=== PATIENT | female | born 1950 | race Caucasian/White ===

== ENCOUNTER 2023-10-27 20:57 | Emergency (ER) | payer MEDICARE, SELFPAY ==
--- NOTE | ~2023-10-27 | XR_ITS ---
EXAM: XR pelvis 1-2V DATE: 10/27/2023 23:30 HISTORY: fall . COMPARISON: None available. FINDINGS: Normal mineralization. No fracture or dislocation. No lytic or blastic lesion. Lumbar dege nerative disc disease. Bilateral hip osteoarthritis. No erosion or periosteal change. Soft tissues wi thin normal limits. IMPRESSION: No acute osseous finding in the pelvis. Reviewed, dictated and finalized at location K.
--- NOTE | ~2023-10-27 | XR_ITS ---
EXAMINATION: XR chest 1V Exam Date/Time: 10/27/2023 23:15 CDT HISTORY: fall Comparison: None. RESULT: Lines, tubes, and devices: None. Lungs and pleura: Leftward rotation in one frontal view. Low volumes in the second frontal view. Francine gs are clear. Cardiomediastinal silhouette: Unremarkable. Other: No acute osseous or upper abdominal finding. IMPRESSION: No acute cardiopulmonary process. Reviewed, dictated and finalized at location K.
--- NOTE | ~2023-10-27 | CT_ITS ---
EXAMINATION: CT pelvis wo con DATE: 10/28/2023 00:44 INDICATION: Status post fall. Hematoma. TECHNIQUE: Computed tomography (CT) of the pelvis was performed without intravenous contrast. The dos e-length product was 622.44 mGy-cm. Automated exposure control and iterative reconstruction technique were employed. COMPARISON: None FINDINGS: There is fluid and fatty infiltration in the right gluteal region, consistent with hematoma measuring up to 13 cm. No intra-abdominal abnormality is seen. Mild osteoarthritis of the hips. Marlyn re lower lumbar spondylosis partially visualized. Left lateral listhesis at L4-5. No acute fracture o r traumatic malalignment. IMPRESSION: 1. Soft tissue and fluid right gluteal soft tissues, consistent with hematoma. Reviewed, dictated and finalized at location B.
--- NOTE | ~2023-10-27 | CT_ITS ---
EXAMINATION: CT thoracic lumbar wo con DATE: 10/27/2023 23:42 INDICATION: back injury, fall . TECHNIQUE: Computed tomography (CT) of the thoracic and lumbar spine was performed without intravenou s contrast. The dose-length product was 2042.26 mGy-cm. COMPARISON: None FINDINGS: THORACIC SPINE: Exaggerated kyphosis. Moderate scoliosis. Vertebral body alignment intact. Vertebral body heights pre served. Multilevel moderate disc space narrowing and mild marginal osteophytosis. Multilevel vacuum p henomenon in the mid and lower thoracic spine disc spaces. Multilevel mild facet arthropathy. No trau matic malalignment or fracture. Visualized lung parenchyma is clear. No severe central canal or neura l foraminal narrowing Bone island in a posterior right rib. Large hiatal hernia. Cholecystectomy. LUMBAR SPINE: Moderate scoliosis. 5 nonrib-bearing lumbar-type vertebral bodies. Pedicles intact. 2 mm retrolisthes is at L2-3. 2 mm anterolisthesis at L4-5. Vertebral body heights preserved. Multilevel severe degener ative disc disease including large bridging osteophytes and vacuum phenomenon at multiple lumbar leve ls. Multilevel severe lower lumbar facet arthropathy. Severe bilateral L5-S1 neural foraminal narrowi ng secondary to degenerative changes. Severe central canal stenosis at L4-5 secondary to degenerative changes. 1.5 x 9.8 by at least 8.8 cm subcutaneous hematoma/contusion with surrounding stranding ove rlying the right posterior pelvis. IMPRESSION: No acute fracture or traumatic malalignment detected in the thoracic or lumbar spine. 9.8 cm subcutaneous hematoma/contusion overlying the right posterior pelvis, incompletely included in the [id number] Multilevel moderate and severe degrees of degenerative disc disease and mild facet arthropathy in the thoracic spine. Grade 1 listheses at L2-3 and L4-5 likely secondary to degenerative changes. Multilevel severe lumbar degenerative disc disease and facet arthropathy causing severe central canal stenosis at L4-5 and severe bilateral neural foraminal narrowing at L5-S1. Reviewed, dictated and finalized at location K. IMPRESSION: No acute fracture or traumatic malalignment detected in the thoracic or lumbar spine. 9.8 cm subcutaneous hematoma/contusion overlying the right posterior pelvis, in completely included in the [id number] Multilevel moderate and severe degrees of degenerative disc disease and mild fa cet arthropathy in the thoracic spine. Grade 1 listheses at L2-3 and L4-5 likely secondary to degenerative changes. Multilevel severe lumbar degenerative disc disease and facet arthropathy causin g severe central canal stenosis at L4-5 and severe bilateral neural foraminal n arrowing at L5-S1.
[2023-10-27 21:30] VITALS: BP 138/70; PULSE 54; RESP 14; TEMP 36.9; O2SAT 99
[2023-10-27 21:36] VITALS: BP 138/70; PULSE 55; RESP 12; O2SAT 99
[2023-10-27 22:00] VITALS: PULSE 54; RESP 13; O2SAT 100
[2023-10-27 22:45] VITALS: PULSE 61; RESP 14; O2SAT 100
[2023-10-27 23:00] VITALS: PULSE 60; RESP 15; O2SAT 100
--- NOTE | 2023-10-27 23:30 | PC.NURSE ---
Report from RUDY Martinez. Pt resting quietly per cart with eyes closed. Resp even and nonlabored.
[2023-10-27 23:42] VITALS: BP 140/65; PULSE 64; RESP 12
--- NOTE | 2023-10-27 23:46 | PC.NURSE ---
care and report given to RUDY Perez. all questions answered.
[2023-10-28] VITALS (9 sets, daily range): BP systolic 98–137; BP diastolic 58–83; PULSE 69–75; RESP 11–16; O2SAT 95–100
--- NOTE | 2023-10-28 00:17 | ED.FALL ---
HPI - Fall General Chief Complaint: Fall Stated Complaint: FALL Time Seen by Provider: 10/27/23 22:21 Source: patient and EMS Mode of arrival: EMS Limitations: dementia History of Present Illness HPI Narrative: This is a 73-year-old female that presents to the emergency department after a witnessed fall today. Reportedly patient fell in the shower at her facility. She had a contusion on her back which prompted them to send her in for further evaluation. Patient is nonverbal. Appears in no acute distress. Related Data Allergies Allergy/AdvReac Type Severity Reaction Status Date / Time Cephalosporins Allergy Unknown Verified 10/27/23 21:37 lisinopril Allergy Unknown Verified 10/27/23 21:37 Penicillins Allergy Unknown Verified 10/27/23 21:37 Sulfa (Sulfonamide Allergy Unknown Verified 10/27/23 21:37 Antibiotics) Review of Systems Review of Systems: ROS unobtainable: Yes unobtainable due to medical condition PMFSH Past Medical History Medical History (Updated 10/28/23 @ 00:48 by Mercy Loera PA-C) History of dementia History of hypertension Social History Social History (Updated 10/28/23 @ 00:18 by Mercy Loera PA-C) Substance use: never Exam Narrative: GENERAL: Elderly, well-nourished, and in no acute distress. HEAD: Normocephalic, atraumatic. EYES: PERRLA and EOMI. ENT: Nares clear, no rhinorrhea or epistaxis. Mucous membranes moist. Oropharynx without tonsillar hypertrophy exudate or other lesions. Bilateral TMs pearly moreno non-bulging NECK: Supple. No adenopathy or masses. CHEST: Clear to auscultation. No respiratory distress. No wheezes rales or rhonchi HEART: Regular rate and rhythm. No murmur heard. Normal peripheral pulses. BACK: No midline spinal tenderness. Contusion to the right of the lumbar spine EXTREMITIES: Normal range of motion. No edema. SKIN: Warm, dry, no rash. NEURO: No focal deficits. Alert. Neurologic exam is severely limited due to her dementia PSYCH: Normal mood Course Vital Signs Vital signs: Vital Signs Temperature 98.4 F 10/27/23 21:30 Pulse Rate 54 L 10/27/23 21:30 Respiratory Rate 14 10/27/23 21:30 Blood Pressure 138/70 10/27/23 21:30 Pulse Oximetry 99 10/27/23 21:30 Temperature 98.4 F 10/27/23 21:30 Pulse Rate 74 10/28/23 01:40 Respiratory Rate 16 10/28/23 01:40 Blood Pressure 118/69 10/28/23 01:40 Pulse Oximetry 97 10/28/23 01:40 MDM - Fall MDM Narrative Medical decision making narrative: Patient presents the emergency department after witnessed fall at facility with a contusion to her back. Her vitals are stable. She appears to be neurologically intact and at baseline. CT thoracic and lumbar spine without acute osseous findings. Does show a right posterior pelvis hematoma. CT pelvis once again shows hematoma, no acute fractures. Chest x-ray without acute cardiopulmonary abnormality. Patient incidentally also has candidal intertrigo. Will be started on clotrimazole. Given warnings to return to the ER Differential Diagnosis Differential diagnosis: Likely compression fracture and other (contusion, hematoma) Imaging Data Radiologist's impression: ITS Impressions Chest X-Ray 10/27/23 23:31 IMPRESSION: No acute cardiopulmonary process. Pelvis X-Ray 10/27/23 23:32 IMPRESSION: No acute osseous finding in the pelvis. Thoracic/Lumbar Spine CT 10/28/23 00:04 IMPRESSION: No acute fracture or traumatic malalignment detected in the thoracic or lumbar spine. 9.8 cm subcutaneous hematoma/contusion overlying the right posterior pelvis, incompletely included in the [id number] Multilevel moderate and severe degrees of degenerative disc disease and mild facet arthropathy in the thoracic spine. Grade 1 listheses at L2-3 and L4-5 likely secondary to degenerative changes. Multilevel severe lumbar degenerative disc disease and facet arthropathy causing severe central canal stenosis
== END 2023-10-28 04:07 ==
PROVIDERS: Emergency Provider Physician Assistant
DX: S30.0XXA Contusion of lower back and pelvis, initial encounter (principal); B37.2 Candidiasis of skin and nail; F03.90 Unspecified dementia, unspecified severity, without behavioral disturbance, psychotic disturbance, mood disturbance, and anxiety; I10 Essential (primary) hypertension; M51.34 Other intervertebral disc degeneration, thoracic region; M51.36 Other intervertebral disc degeneration, lumbar region; M48.061 Spinal stenosis, lumbar region without neurogenic claudication; W18.2XXA Fall in (into) shower or empty bathtub, initial encounter
CPT/HCPCS: 71045; 72128; 72131; 72170; 72192; 99284

== ENCOUNTER 2024-07-08 13:23 | Emergency (ER) | payer MEDICARE, SELFPAY ==
--- NOTE | ~2024-07-08 | XR_ITS ---
CHEST RADIOGRAPH, PA AND LATERAL CLINICAL HISTORY: weakness . COMPARISON: 10/27/2023 TECHNIQUE: PA and lateral views of the chest. FINDINGS The cardiomediastinal silhouette is unremarkable. The lungs are clear. IMPRESSION: No focal infiltrate or effusion. Reviewed, dictated and finalized at location A.
--- OUTSIDE RECORDS SUMMARY | 2024-07-08 13:26 | XMS_ITS | Referral Summary ---
Author Organization [facility] Address [address] [place] [address] Phone Care Team Providers Care Distribution Center Associate Name Role Phone Janene Marmolejo MD Primary Care Provider [phone] Encounters Date Type Department Care Team Description 05/04/2024 Telephone [facility] Primary Care at [facility] [address] [address] Ivelisse Mercado MD from Last 3 Months Allergies Active Allergy Reactions Criticality Noted Date Comments Cephalosporins Rash Reaction: Rash, Lisinopril Rash Reaction: Rash, Penicillins Rash,Hives High 03/12/2013 Reaction: Rash, Sulfa (Sulfonamide Antibiotics) Rash,Hives High 12/2012 Reaction: Rash, Medications calcium carbonate/vitam in D3 (CALCIUM 500 + D ORAL) Take by mouth Ac tive LORazepam (ATIVAN) 0.5 mg tablet TAKE ONE-HALF TABLET BY MOUTH DAILY AT BEDTIME NEEDED FOR PANIC 15 tablet 1 9 Active donepezil (ARICEPT) 10 mg tablet Take 1 tablet (10 mg total) by mouth daily 90 tablet 3 9 Active amLODIPine (NORVASC) 2.5 mg tablet 2 Active escitalopram (LEXAPRO) 20 mg tablet 2 Active hydroCHLOROthia zide (HYDRODIURIL) 50 mg tablet 2 Active loratadine (CLARITIN) 10 mg tablet Take 1 tablet (10 mg total) by mouth daily 2 Active omeprazole (PriLOSEC) 20 mg capsule 2 Active potassium chloride ER 20 mEq CR tablet 2 Active metoprolol tartrate (LOPRESSOR) 50 mg immediate release tablet 2 Active memantine (NAMENDA) 5 mg tabletIndicatio ns:Moderate to Severe Alzheimer's Type Dementia Take 1 tablet (5 mg total) by mouth 2 (two) times a day 60 tablet 11 2 Active cholecalciferol (Vitamin D3) 1,000 unit capsuleIndicati ons:Vitamin D Deficiency Take 1 capsule (1,000 Units total) by mouth daily 90 capsule 3 2 Active QUEtiapine (SEROquel) 100 mg tablet Take 1 tablet (100 mg total) by mouth 2 (two) times a day 180 tablet 3 2 Active fluconazole (DIFLUCAN) 100 mg tablet Take 1 tablet (100 mg total) by mouth daily 7 tablet 1 3 Active triamcinolone (KENALOG) 0.025 % cream Apply 1 Application topically 2 (two) times a day for 14 days 30 g 1 3 Active dextromethorpha n-guaiFENesin (ROBITUSSIN-DM) 2-20 mg/mL liquid TAKE TAKE 5ML (1 TEASPOONFUL) BY MOUTH TWICE DAILY;TAKE 1-2 TEASPOON TWICE DAILY NEEDED FOR COUGH 237 mL 10 3 Active acetaminophen (TYLENOL) 500 mg tablet Take 1 tablet (500 mg total) by mouth every 6 (six) hours as needed for pain or headaches 30 tablet 3 4 Active loperamide (IMODIUM) 2 mg capsuleIndicati ons:diarrhea Take 1 capsule (2 mg total) by mouth as needed for diarrhea 30 capsule 4 Active magnesium hydroxide (MILK OF MAGNESIA) suspension 400 mg/5 mLIndications:c onstipation Take 30 mL by mouth daily as needed (constipation) 120 mL 4 Active Active Problems Problem Noted Date Diagnosed Date Vitamin D deficiency 11/09/2021 Overview (11/09/2021): Her vit D level is low at 28 ng/ml while on no vitamin D. Assessment & Plan (12/13/2022 11:12 AM CDT): Start vitamin D 1000 international units per day Assessment & Plan (11/09/2021 2:35 PM CDT): Start vitamin D 1000 international units per day Morbid obesity with BMI of 40.0-44.9, adult 0811/2021 Overview (06/29/2022): Worsened with quetiapine. She's unable to stay active b/c of dementia Assessment & Plan (06/29/2022 10:11 PM CDT): BMI Follow-up includes: education provided and has done PT but limited ability to stay active. Assessment & Plan (11/09/2021 2:52 PM CDT): BMI Follow-up includes: nutrition counseling and try to decrease the quetiapine. Tinea corporis 10/26/2021 Overview (11/09/2021): Improving under her bilateral breasts over the past few weeks and it was red and blistered and oozing. Used fluconazole for 14 days and now using anti-fungal cream over past 1-2 weeks and improving some. Assessment & Plan (11/09/2021 3:00 PM CDT): Take fluconazole 100 mg per day for 7 days and continue anti-fungal cream twice daily covered with anti-fungal powder for 2 weeks. After clearing then keep the area clean and dry and use the pads to prevent moisture build up and use anti-fungal powder twice daily +/- desitin mixed with A&D ointment for a barrier prevention. Assessment & Plan (10/26/2021 1:44 PM CDT): Start the fluconazole 100 mg per day for 14 days and continue anti-fungal cream twice daily covered with anti-fungal powder. After clearing then keep the area clean and dry and use the pads to prevent moisture build up and use anti-fungal powder all of the time every day +/- desitin mixed with A&D ointment for a barrier prevention. Postmenopausal bleeding 06/12/2018 Overview (06/12/2018): She had a hysterectomy 35 years ago. We don't know if cervix and ovaries are in. Some spotting on depends over the past 2-3 months. No pain and no discharge such as yeast, no burning, no fever. Assessment & Plan (06/12/2018 10:14 AM CDT): I would recommend that you see Dr. Chang to evaluate for postmenopausal bleeding. We'll also get a urine sample today. Medicare annual wellness visit, subsequent 06/13 Overview (11/09/2021): Overall doing well and no falls. Lives at the [facility] for her dementia. She's still doing her ADLs with assistance. Assessment & Plan (12/13/2022 11:14 AM CDT): Assessment & Plan: Stay as active as possible Order Routine labs drawn prior to visit and discussed at this time. Copy given to patient Follow up 1 year, sooner if needed Take medications as directed Sign up for [email or web address] to see your results and/or send messages Assessment & Plan (11/09/2021 2:51 PM CDT): Assessment & Plan: Stay as active as possible Order Routine labs drawn prior to visit and discussed at this time. Copy given to patient Follow up 1 year, sooner if needed Take medications as directed Sign up for [email or web address] to see your results and/or send messages Assessment & Plan (12/11/2018 10:24 AM CDT): Assessment & Plan: I recommend that you follow a diet that is high in fruits, vegetables, and lean meat such as chicken or turkey. Would avoid processed foods which can be high in sugar and salt.. I recommend using beneficial fats such as olive oil, nuts, seeds, and fish. Would avoid saturated animal fats. Please stay physically active to the extent that you are able. If you have not received communication about test results within 7 days of the test being performed, please contact the office. Continue/ increase aerobic exercise for 45 min sessions at least 5 days a week Increase fruits and vegetables 4-5 servings a day Order Routine labs drawn prior to visit and discussed at this time. Copy given to patient Follow up 1 year, sooner if needed Take medications as directed Sign up for [email or web address] to see your results and/or send messages Assessment & Plan (06/13/2017 1:16 PM CDT): Assessment & Plan: I recommend that you follow a diet that is high in fruits, vegetables, and lean meat such as chicken or turkey. Would avoid processed foods which can be high in sugar and salt.. I recommend using beneficial fats such as olive oil, nuts, seeds, and fish. Would avoid saturated animal fats. Please stay physically active to the extent that you are able. If you have not received communication about test results within 7 days of the test being performed, please contact the office. Start exercise for 30-45 min sessions at least 5 days a week Increase fruits and vegetables 4-5 servings a day Order Routine labs drawn prior to visit and discussed at this time. Copy given to patient Follow up 1 year, sooner if needed Take medications as directed Sign up for [email or web address] to see your results and/or send messages Body mass index (BMI) of 39.0-39.9 in adult 06/02 Gait instability 06/13/2017 Overview (11/09/2021): Some difficulty getting up and a little off balance Assessment & Plan (11/09/2021 2:57 PM CDT): Start PT Class 2 obesity due to exces s calories without serious comorbidity with body mass index (BMI) of 39.0 to 39.9 in adult 06/13/2017 Overview (12/11/2018): -no pain in your joints and exercises at residential Assessment & Plan (12/11/2018 10:24 AM CDT): BMI Follow-up includes: nutrition counseling and continue exercise. Assessment & Plan (06/12/2018 10:39 PM CDT): BMI Follow-up includes: exercise counseling limited by dementia. Assessment & Plan (06/13/2017 5:13 PM CDT): BMI Follow-up includes: exercise counseling - limited by cognitive status. 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 She tried to decrease to 75 mg twice per day and she started having crying and irritability. Assessment & Plan (12/13/2022 11:15 AM CDT): Stay on the quetiapine to 100 mg twice per day and stay on memantine and donepezil Assessment & Plan (05/10/2022 3:27 PM ASSOCIATE PROFESSOR OF CHEMISTRY): Stay on the quetiapine to 100 mg twice per day and stay on memantine and donepezil Assessment & Plan (11/09/2021 2:40 PM CDT): Decrease the quetiapine to 75 mg twice per day and stay on memantine and donepezil Assessment & Plan (10/26/2021 2:01 PM CDT): Stay on the quetiapine at bedtime and consider adding a medication for Alzheimer's disease - called memantine 5 mg twice daily. Assessment & Plan (09/03/2019 11:30 PM CDT): Continue Donepezil at 5mg. Did not increase to 10mg as per Dr. Marmolejo's 12/2018 plan. Pt with unexplained diarrhea a few times. Now uses Depends. Do not recommend increase in Donepezil dose d/t diarrhea. D/w Dr. Marmolejo about indications re: antipsychotics. Pt without parkinsonism and tolerating meds well but may benefit from medication review and reduction. Will defer to Dr. Marmolejo unless she would prefer I manage the AD and behavior meds. Sister/ CS/ POA requesting repeat brain imaging to evaluate interval change from 2013. Recommend HCT over bMRI as pt will not tolerate the longer MRI study. RTC in 1 year. Assessment & Plan (12/11/2018 10:29 AM CDT): Increase the donepezil to 10 mg per day and continue this. Make a f/u appointment with Dr. Bai at the [facility] [phone] Assessment & Plan (06/13/2017 1:13 PM CDT): -stay on aricept and seroquel and zyprexa and ativan only as needed Obstructive sleep apnea syndrome 08/06/2015 Overview (06/13/2017): Obstructive Sleep Apnea -didn't tolerate the CPAP and doesn't use it Assessment & Plan (06/13/2017 1:12 PM CDT): -no treatment for now Impaired glucose tolerance 08/06/2015 Overview (11/09/2021): Impaired glucose tolerance -blood sugar at a level of 93 on recent blood work Assessment & Plan (12/13/2022 11:13 AM CDT): Try to decrease the quetiapine to 75 mg twice per day and then decrease to 50 mg twice per day if tolerating. Stop the quetiapine 100 mg twice daily Assessment & Plan (11/09/2021 2:39 PM CDT): Try to decrease the quetiapine to 75 mg twice per day and then decrease to 50 mg twice per day if tolerating. Stop the quetiapine 100 mg twice daily Assessment & Plan (12/11/2018 10:24 AM CDT): Check average blood sugar Hypertension 08/06/2015 Overview (11/09/2021): HYPERTENSION NOS -stable on hctz and amlodipine Assessment & Plan (12/13/2022 11:12 AM CDT): Stay on amlodipine and hctz Assessment & Plan (05/10/2022 3:23 PM ASSOCIATE PROFESSOR OF CHEMISTRY): Stay on amlodipine and hctz Assessment & Plan (11/09/2021 2:53 PM CDT): -stable on hctz and amlodipine Assessment & Plan (12/11/2018 10:13 AM CDT): Stable on hctz Assessment & Plan (06/12/2018 10:32 PM CDT): Stay on hctz. Immunizations Immunization Administration Dates Next Due Influenza, Quadrivalent, Spl it, Preservative Free, Intramuscular 12/31/2018 Influenza, Split 01/02/2010 Influenza, Trivalent, High D ose, Split, Preservative Free, Intramuscular 02/04/2016 Influenza, Trivalent, IM (MDV) 5,01/02/2014,01/02/2013,01/06,01/04/2011,03/03/2006 Influenza, Unspecified 01/16/2022,01/02/2021,03/2017 Pneumococcal Conjugate PCV 13 02/04/2016 Pneumococcal Polysaccharide PPV23 01/02/2014 ZOSTER LIVE 10/22/2011 Social History Tobacco Use Types Packs/Day Years Used Date Smoking Tobacco: Never Smokeless Tobacco: Never Tobacco Cessation:Counseling Given: Not Answered Alcohol Use Standard Drinks/Week Comments Yes 0 (1 standard drink = 0.6 oz pur e alcohol) PHQ-2 Answer Date Recorded PHQ-2 Total Score (If total score is 3 or more points, staff should administer the PHQ-9) 0 12/13/2022 Comments Unknown Sex and Gender Information Value Date Recorded Sex Assigned at Not on file Legal Sex Female 10:56 AM ASSOCIATE PROFESSOR OF CHEMISTRY Gender Identity Not on file Sexual Orientation Not on file Last Filed Vital Signs Vital Sign Reading Time Taken Comments Blood Pressure 122/80 12/13/2022 10:29 AM CDT Pulse 85 12/13/2022 10:29 AM CDT Temperature 36.5 C (97.7 F) 12/13/2022 10:29 AM CDT Respiratory Rate 15 05/10/2022 2:39 PM ASSOCIATE PROFESSOR OF CHEMISTRY Oxygen Saturation 96% 12/13/2022 10:29 AM CDT Inhaled Oxygen Concentration - - Weight 95.3 kg (210 lb) 12/13/2022 10:29 AM CDT Height 154.9 cm (5' 0.98 ) 12/13/2022 10:29 AM C DT Body Mass Index 39.71 12/13/2022 10:29 AM CDT Plan of Treatment Not on file Procedures Procedure Name Priority Date/Time Associated Diagnosis Comments BONE DENSITY, TRANSMISSION Routine 03/30/2013 3:00 PM ASSOCIATE PROFESSOR OF CHEMISTRY HM COLONOSCOPY Routine 09/06/2008 from Last 3 Months or Most Recently Relevant to Health Maintenance Results * BONE DENSITY, TRANSMISSION (03/30/2013 3:00 PM ASSOCIATE PROFESSOR OF CHEMISTRY) Anatomical Region Laterality Modality N/A Radiographic Kelsey ging 03/30/2013 3:00 PM ASSOCIATE PROFESSOR OF CHEMISTRY Narrative 04/02/2013 8:26 AM ASSOCIATE PROFESSOR OF CHEMISTRY Bone mineral density of the spine and hip 03/30/2013 HISTORY: Status post hysterectomy at age 23. Your patient underwent dual energy x-ray absorptiometry on a HoloMotionDSP Discovery SL at [facility]. The computer generated images have been reviewed. The average bone mineral density of L1 - L4 is 1.136 grams/cm squared. The value is 109% of peak bone mineral density and results in a standard deviation (T-score) of 0.8. By World Health Organization criteria this value is in the normal range. The bone mineral density of the left femoral neck is 0.704 grams/cm squared. The value is 83% of peak bone mineral density and results in a standard deviation (T-score) of -1.3. By World Health Organization criteria this represents diminished bone mineral density in the osteopenic range. Therapy should be considered. The who defines normal as T-scores above -1, osteopenia as T-scores between -1 and -2.5, and some osteoporosis as T-scores below -2.5. These distinctions are somewhat artificial. Remember that bone mineral loss is a continuum and treatment should be based on bone mineral density as well as other clinical factors. For each loss of 1 standard deviation there is a 2x increase in fracture risk for the spine and 2.5x increase in fracture risk for the hip over that of young normals. LP/tab Radiologist: RUPERT BENAVIDEZ M.D. Attending: ULICES PORTER Requesting: ULICES PORTER Requesting Completed Time: 03/30/2013 3:00 PM Dictated Time: 03/30/2013 3:07 PM Transcribed Time: 03/30/2013 7:22 PM Signed by: RUPERT BENAVIDEZ M.D. on 04/02/2013 08:26 AM Report To 1 ID: Report To 1 Name: , Report To 1 FAX: Report To 2 ID: Report To 2 Name: , Report To 2 FAX: Report To 3 ID: Report To 3 Name: , Report To 3 FAX: NextGen Order #: Procedure Note Provider, MD Sheridan - 07/25/2016 Bone mineral density of the spine and hip 03/30/2013 HISTORY: Status post hysterectomy at age 23. Your patient underwent dual energy x-ray absorptiometry on a HoloMotionDSP Discovery SL at [facility]. The computer generated images have been reviewed. The average bone mineral density of L1 - L4 is 1.136 grams/cm squared. The value is 109% of peak bone mineral density and results in a standard deviation (T-score) of 0.8. By World Health Organization criteria this value is in the normal range. The bone mineral density of the left femoral neck is 0.704 grams/cm squared. The value is 83% of peak bone mineral density and results in a standard deviation (T-score) of -1.3. By World Health Organization criteria this represents diminished bone mineral density in the osteopenic range. Therapy should be considered. The who defines normal as T-scores above -1, osteopenia as T-scores between -1 and -2.5, and some osteoporosis as T-scores below -2.5. These distinctions are somewhat artificial. Remember that bone mineral loss is a continuum and treatment should be based on bone mineral density as well as other clinical factors. For each loss of 1 standard deviation there is a 2x increase in fracture risk for the spine and 2.5x increase in fracture risk for the hip over that of young normals. LP/tab Radiologist: RUPERT BENAVIDEZ M.D. Attending: ULICES PORTER Requesting: ULICES PORTER Requesting Completed Time: 03/30/2013 3:00 PM Dictated Time: 03/30/2013 3:07 PM Transcribed Time: 03/30/2013 7:22 PM Signed by: RUPERT BENAVIDEZ M.D. on 04/02/2013 08:26 AM Report To 1 ID: Report To 1 Name: , Report To 1 FAX: Report To 2 ID: Report To 2 Name: , Report To 2 FAX: Report To 3 ID: Report To 3 Name: , Report To 3 FAX: NextGen Order #: Historical Provider IMG XR PROCEDURES Final R esult * COLONOSCOPY (09/06/2008) Colonoscopy Abnormal Historical Provider HEALTH MAINTENANCE Final Result from Last 3 Months or Most Recently Relevant to Health Maintenance Insurance MEDICARE [facility] MEDICARE [facility] BLUE CROSS MEDICARE SUPPLEMENT MEDICARE [facility] MEDICARE SUPPLEMENT Care Teams Distribution Center Associate Relationship Specialty Start Date End Date Janene Marmolejo MD [address] [facility] [address] [place] [address] PCP - General Internal Medicine 11/07/17
--- OUTSIDE RECORDS SUMMARY | 2024-07-08 13:26 | XMS_ITS | Clinical Summary ---
Author Organization [facility] Address [address] [place] [id number] Phone Care Team Providers Care Cable Mock Up Assembler Name Role Phone Janene Marmolejo MD Primary Care Provider Allergies Active Allergy Reactions Criticality Noted Date [...] well and no falls. Lives at the [facility] for her dementia. She's still [...] pain in your joints and exercises at long-term Assessment & Plan (12/11/2018 10:24 AM CDT): [...] donepezil Assessment & Plan (05/10/2022 3:27 PM SPRING SALVAGE WORKER): Stay on the quetiapine to 100 mg [...] f/u appointment with Dr. Bai at the [facility] [phone] Assessment & Plan (06/13/2017 1:13 PM CDT): [...] hctz Assessment & Plan (05/10/2022 3:23 PM SPRING SALVAGE WORKER): Stay on amlodipine and hctz Assessment & Plan (11/09/2021 2:53 PM CDT): -stable on hctz and amlodipine Assessment & Plan (12/11/2018 10:13 AM CDT): Stable on hctz Assessment & Plan (06/12/2018 10:32 PM CDT): Stay on hctz. Encounters Date Type Department Care Team Description 05/04/2024 Telephone [facility] Primary Care at [facility] [address] [address] Ivelisse Mercado MD from Last 3 Months Immunizations Immunization Administration Dates Next Due Influenza, Quadrivalent, Spl it, Preservative Free, Intramuscular 12/31/2018 Influenza, Split 01/02/2010 Influenza, Trivalent, High D ose, Split, Preservative Free, Intramuscular 02/04/2016 Influenza, Trivalent, IM (MDV) 5,01/02/2014,01/02/2013,01/06,01/04/2011,03/03/2006 Influenza, Unspecified 01/16/2022,01/02/2021,03/2017 Pneumococcal Conjugate PCV 13 02/04/2016 Pneumococcal Polysaccharide PPV23 01/02/2014 ZOSTER LIVE 10/22/2011 Surgical History Surgery Date Site/Laterality Comments CHOLECYSTECTOMY 04/04/1989 - 04/03/1990 Cholecystectomy TOTAL ABDOMINAL HYSTERECTOMY W/ BILATERAL SALPINGOOPHORECTOMY 04/04/1981 - 04/03/1982 Fibroids: DEANNE/USO TOENAIL EXCISION 04/04/2006 - 04/03/2007 Toenail removal 1981 TONSILLECTOMY Medical History Medical History Date Comments Rosacea Rosacea Rash 2008 Rash buttock; Ou tcome: chapis bowersRash buttock: atypical t-cell lymphocyte, repeat normal RAMILA (obstructive sleep apnea) History of postmenopausal HRT Alzheimer's disease (HCC) GERD (gastroesophageal reflux disease) Hypertension Family History Medical History Relation Name Comments Stroke Father Stroke; Cause o f : Stroke Other Mother Cancer -spindle cell (blood); Cause of : Cancer -spindle cell (blood) Relation Name Status Comments Brother Alive Father (Age 80) Mother (Age 77) Sister Alive Social History Tobacco Use Types Packs/Day Years [...] on file Legal Sex Female 10:56 AM SPRING SALVAGE WORKER Gender Identity Not on file Sexual Orientation Not on file Obstetrics History Last Filed Vital Signs Vital Sign Reading Time Taken Comments Blood Pressure 122/80 12/13/2022 10:29 AM CDT Pulse 85 12/13/2022 10:29 AM CDT Temperature 36.5 C (97.7 F) 12/13/2022 10:29 AM CDT Respiratory Rate 15 05/10/2022 2:39 PM SPRING SALVAGE WORKER Oxygen Saturation 96% 12/13/2022 10:29 AM CDT Inhaled Oxygen Concentration - - Weight 95.3 kg (210 lb) 12/13/2022 10:29 AM CDT Height 154.9 cm (5' 0.98 ) 12/13/2022 10:29 AM C DT Body Mass Index 39.71 12/13/2022 10:29 AM CDT Plan of Treatment Health Maintenance Due Date Last Done Comments Hepatitis C Screening 1950 DTaP/Tdap/Td Vaccine (1 - Tdap) 02/21/1959 Hepatitis B Screening 02/21/1966 Zoster Vaccine (2 of 3) 12/17/2011 10/22/2011 Osteoporosis Screening-Bone Density Scan 03/30/2015 03/30/2013 Covid-19 Vaccine (5 2023-2 5 season) 2023 01/25/2022, 07/01/2021, 06/03/2020, Additional history exists Influenza Vaccine (#1) 2023 , 01/02/2021, 12/31/2018, Additional history exists Depression Screening 12/14/2023 12/13/2022, 10/26/2021, 12/11/2018, Additional history exists Fall Risk Assessment 12/14/2023 12/13/2022, 10/26/2021, 12/11/2018, Additional history exists Well Visit 65+ 12/14/2023 12/13/2022, 11/2021, 12/11/2018, Additional history exists Colon Cancer Screening-CT Colonography Discontinued 09/06/2008 Colon Cancer Screening-Colonoscopy Discontinued 09/06/2008 Colon Cancer Screening-DNA Stool Discontinued 09/07/19 Colon Cancer Screening-FIT Discontinued 09/06/2008 Colon Cancer Screening-FOBT Discontinued 09/06/2008 Colon Cancer Screening-Sigmoidoscopy Discontinued 09/06/2008 Colorectal Cancer Screening Discontinued Pneumococcal vaccine 65+ Completed 02/04/2016, 04/2013 Procedures Procedure Name Priority Date/Time Associated Diagnosis Comments BONE DENSITY, TRANSMISSION Routine 03/30/2013 3:00 PM SPRING SALVAGE WORKER HM COLONOSCOPY Routine 09/06/2008 from Last 3 Months or Most Recently Relevant to Health Maintenance Results * BONE DENSITY, TRANSMISSION (03/30/2013 3:00 PM SPRING SALVAGE WORKER) Anatomical Region Laterality Modality N/A Radiographic Kelsey ging 03/30/2013 3:00 PM SPRING SALVAGE WORKER Narrative 04/02/2013 8:26 AM SPRING SALVAGE WORKER Bone mineral density of the spine and hip 03/30/2013 HISTORY: Status post hysterectomy at age 23. Your patient underwent dual energy x-ray absorptiometry on a Holo[employer] Discovery SL at [facility]. The computer generated images have been reviewed. [...] underwent dual energy x-ray absorptiometry on a HoloBMP [employer] Discovery SL at [facility]. The computer generated images have been reviewed. [...] Recently Relevant to Health Maintenance Insurance MEDICARE [facility] MEDICARE [facility] BLUE CROSS MEDICARE SUPPLE[place] [address] [facility] MEDICARE SUPPLEMENT Care Teams Cable Mock Up Assembler Relationship Specialty Start Date End Date Janene Marmolejo MD [address] [place] [address] PCP - General Internal Medicine 11/07/17
--- OUTSIDE RECORDS SUMMARY | 2024-07-08 13:26 | XMS_ITS | CONTINUITY OF CARE DOCUMENT ---
Author Name catherine alexander Address Unknown Organization [facility] Address [address] [address] [place] [address] Phone [phone] Care Team Providers Care Referral Management Liaison Name Role Phone Harjeet Liu MD Unavailable Harjeet Liu MD Unavailable [phone] INSURANCE PROVIDERS Payer name Policy type / Coverage type Og red libertarian ID [place] Blue [place] MED[place] Medicare [id number]
--- OUTSIDE RECORDS SUMMARY | 2024-07-08 13:26 | XMS_ITS | Encounter Summary ---
Author Organization [facility] Address [address] [place] [address] Phone Care Team Providers Care Tool Dresser Name Role Phone Day Riggins MD Primary Care Provider [phone] Janene Marmolejo MD Primary Care Provider [phone] Encounter Details Date Type Department Care Team (Late st Contact Info) Description 06/13/2017 Orders Only [facility] ProviderSheridan MD [address] [place], [place] [id number] Social History Tobacco Use Types Packs/Day Years Used Date Smoking Tobacco: Never Smokeless Tobacco: Never Alcohol Use Standard Drinks/Week Comments Yes 0 (1 standard drink = 0.6 oz pur e alcohol) Comments Unknown Sex and Gender Information Value Date Recorded Sex Assigned at Not on file 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 Historical Provider LAB BLOOD ORDERABLES [place] l Result documented in this encounter Visit Diagnoses Not on filedocumented in this encounter Care Teams Tool Dresser Relationship Specialty Start Date End Date Day Riggins MD PCP - General 07/02/16 11/06/17 Janene Marmolejo MD [address] [place] [address] [facility] [address] [place] [address] PCP - General Internal Medicine 11/07/17 documented as of this encounter
[2024-07-08 13:29] VITALS: BP 135/46; PULSE 61; RESP 17; TEMP 36.5; O2SAT 100
--- NOTE | 2024-07-08 13:42 | ECG_ITS ---
Test Date: 2024-07-08 14:05:15 Measurements Intervals [place] Rate: 59 P: 24 MS: 168 QRS: -44 QRSD: 106 T: -17 QT: 441 QTc: 439 Interpretive Statements SINUS BRADYCARDIA LEFT AXIS DEVIATION PATTERN CONSISTENT WITH PULMONARY DISEASE BORDERLINE T WAVE ABNORMALITY- INFERIOR LEADS BASELINE ARTIFACT- I, II, III, AVR, AVL, AVF, V1-V6 BORDERLINE ECG No previous ECG available for comparison Electronically Signed On 07-08-2024 16:47:42 CDT by Mateusz Macias D.O.
[2024-07-08 14:18] LABS: Basophils Absolute Auto 0.1 K/mm3 (0.0-0.1); Eosinophils Absolute Auto 0.2 K/mm3 (0-0.3); Hematocrit 40.3 % (37.0-47.0); Immature Granulocyte Absolute 0.02 K/mm3 (0.00-0.031); Immature Granulocyte Percent A 0.3 % (0-0.5); Lymphocytes Absolute Auto 1.12 K/mm3 (0.9-3.2); Lymphocytes Percent Auto 17.9 % (18.3-44.2); Mean Corpuscular HGB Conc 32.3 g/dl (32-36); Mean Corpuscular Hemoglobin 28.1 pg (26-34); Mean Corpuscular Volume 87.2 fl (80-100); Mean Platelet Volume 10.1 fl (7.4-10.4); Monocytes Absolute Auto 0.5 K/mm3 (0.1-0.6); Monocytes Percent Auto 8.1 % (2.6-8.5); Neutrophils Absolute Auto 4.4 K/mm3 (1.3-6.7); Neutrophils Percent Auto 69.7 % (45.5-73.1); Platelet Count Result 268 k/mm3 (150-375); Red Blood Count 4.62 M/mm3 (4.2-5.4); White Blood Count 6.3 K/mm3 (4.5-10.0)
[2024-07-08 14:28] LABS: Alanine Aminotransferase 20 U/L (6-35); Albumin Level 4.1 g/dL (3.5-5.1); Alkaline Phosphatase 120 U/L (38-126); Anion Gap 5 mmol/L (4-12); Aspartate Amino Transferase 22 U/L (14-36); Bilirubin,Total 0.3 mg/dL (0.2-1.3); Blood Urea Nitrogen 22 mg/dL (7-17); Calcium 9.1 mg/dL (8.4-10.2); Carbon Dioxide 34 mmol/L (22-30); Chloride 100 mmol/L (98-107); Estimated Glomerular Filt Rate 59; Glucose 105 mg/dL (65-110); Potassium 3.5 mmol/L (3.4-5.0); Sodium 139 mmol/L (137-145)
[2024-07-08 14:43] LABS: Add Urine Microscopic? YES; Appearance Urine Cloudy (Clear); Bacteria Urine 4+ /hpf; Bilirubin Urine Negative (Negative); Blood Urine Negative (Negative); Color Urine Yellow (Yellow); Glucose Urine UA Negative (Negative); Ketones Urine Trace mg/dL (Negative); Leukocyte Esterase Ur 1+ LEU/UL (Negative); Need Manual Microscopic Reviewed; Nitrate Urine Negative (Negative); Protein Urine Negative (Negative); RBC Urine 0-2 /hpf (0-2); Specific Grav Ur 1.024 (1.001-1.035); Squamous Epithelial Cell Urine Moderate /hpf (Few); WBC Urine 21-50 /hpf (0-3); pH Urine 6.5 (5.0-9.0)
--- OUTSIDE RECORDS SUMMARY | 2024-07-08 15:28 | XMS_ITS | CONTINUITY OF CARE DOCUMENT ---
Author Name catherine alexander Address Unknown Organization [facility] Address [address] [place] [address] Phone [phone] Care Team Providers Care Container Finishing Inspector Name Role Phone Harjeet Liu MD Unavailable Harjeet Liu MD Unavailable [phone] INSURANCE PROVIDERS Payer name Policy type / Coverage type [employer] red constitution party ID [place] Medicare [id number]
--- NOTE | 2024-07-08 15:32 | ED.WEAKNESS ---
HPI - Weakness General Chief complaint: Weakness Stated complaint: fall, weakness Time Seen by Provider: 07/08/24 15:17 Source: EMS and RN notes reviewed Mode of arrival: EMS Limitations: dementia History of Present Illness HPI Narrative: This is a 74-year-old female with advanced dementia who presents to the ED via EMS from local care home for generalized weakness. They were concerned that she may have a UTI as she is acting more generally weaker than normal. Per care home staff patient headache controlled witnessed fall when transferring from a chair. Denies any other symptoms. Patient is unable to provide any history. Related Data Allergies Allergy/AdvReac Type Severity Reaction Status Date / Time Cephalosporins Allergy Unknown Verified 10/27/23 21:37 lisinopril Allergy Unknown Verified 10/27/23 21:37 Penicillins Allergy Unknown Verified 10/27/23 21:37 Sulfa (Sulfonamide Allergy Unknown Verified 10/27/23 21:37 Antibiotics) Review of Systems Review of Systems: ROS unobtainable: Yes unobtainable due to mental status PMFSH Past Medical History Medical History (Updated 07/08/24 @ 15:34 by Lonnie Silva PA-C) History of dementia History of hypertension Social History Social History (Updated 10/28/23 @ 00:18 by Mercy Loera PA-C) Substance use: never Exam Narrative: GENERAL: Well-appearing, well-nourished, and in no acute distress. HEAD: Normocephalic, atraumatic. EYES: PERRLA and EOMI. ENT: Nares clear, no rhinorrhea or epistaxis. Mucous membranes moist. Oropharynx without tonsillar hypertrophy exudate or other lesions. NECK: Supple. No adenopathy or masses. CHEST: No respiratory distress. Clear to auscultation. No wheezes rales or rhonchi HEART: Regular rate and rhythm. No murmur heard. Normal peripheral pulses. ABDOMEN: Soft, nontender, nondistended, normal active bowel sounds. MSK: Normal range of motion. No edema. SKIN: Warm, dry, no rash. NEURO: Alert and oriented x1, at baseline. No focal deficits. PSYCH: Normal mood and affect. Course Vital Signs Vital signs: Vital Signs Temperature 97.7 F 07/08/24 13:29 Pulse Rate 61 07/08/24 13:29 Respiratory Rate 17 07/08/24 13:29 Blood Pressure 135/46 L 07/08/24 13:29 Pulse Oximetry 100 07/08/24 13:29 Oxygen Delivery Room Air 07/08/24 13:29 Temperature 97.7 F 07/08/24 13:29 Pulse Rate 65 07/08/24 16:50 Respiratory Rate 16 07/08/24 16:50 Blood Pressure 108/85 07/08/24 16:50 Pulse Oximetry 96 07/08/24 16:50 Oxygen Delivery Room Air 07/08/24 13:29 MDM - Weakness MDM Narrative Medical decision making narrative: This is a 74-year-old female with advanced dementia on comfort measures who presents to the ED for possible infection according to care home staff who thinks that the patient is weaker than usual. Vitals are normal. Exam remarkable for dementia but no acute findings. Lab work unremarkable overall. There is evidence of UTI with 1+ leuko esterase, 21-50 whites and 4+ bacteria. She will be placed on ciprofloxacin due to cephalosporin and penicillin allergies. Chest x-ray is negative. Overall patient appears to be at her mental status baseline and does not appear toxic. No indications for hospitalization at this time. Continue comfort measures at the care home with Rx for antibiotics for UTI. Patient will be discharged in stable condition. Lab Data 07/08/24 14:08 07/08/24 14:08 Labs: Lab Results 07/08/24 Range/Units 14:08 WBC 6.3 (4.5-10.0) K/mm3 RBC 4.62 (4.2-5.4) M/mm3 Hgb 13.0 (12.0-15.0) g/dL Hct 40.3 (37.0-47.0) % MCV 87.2 (80-100) fl MCH 28.1 (26-34) pg MCHC 32.3 (32-36) g/dl RDW 14.0 (11.5-14.5) % Plt Count 268 (150-375) k/mm3 MPV 10.1 (7.4-10.4) fl Immature Gran % (Auto) 0.3 (0-0.5) % Neut % (Auto) 69.7 (45.5-73.1) % Lymph % (Auto) 17.9 L (18.3-44.2) % Arthur % (Auto) 8.1 (2.6-8.5) % Eos % (Auto) 3.0 (0-4.4) % Baso % (Auto) 1.0 (0.2-1.2) % Lymph # (Auto) 1.12 (0.9-3.2) K/mm3 Arthur # (Auto) 0.5 (0.1-0.6) K/mm3 Eos # (Auto) 0.2 (0-0.3) K/mm3 Baso # (Auto) 0.1 (0.0-0.1) K/mm3 Abs Immat Gran (auto) 0.02 (0.00-0.031) K/mm3 Absolute Neuts (auto) 4.4 (1.3-6.7) K/mm3 Absolute Nucleated RBC 0.000 (0.0-0.012) K/mm3 Nucleated RBC % 0.0 (0.0-0.2) % Sodium 139 (137-145) mmol/L Potassium 3.5 (3.4-5.0) mmol/L Chloride 100 (98-107) mmol/L Carbon Dioxide 34 H (22-30) mmol/L Anion Gap 5 (4-12) mmol/L BUN 22 H (7-17) mg/dL Creatinine 0.93 (0.7-1.0) mg/dL Estim Creat Clear Calc Not Reportable Estimated GFR 59 (59 - ) Glucose 105 (65-110) mg/dL Calcium 9.1 (8.4-10.2) mg/dL Total Bilirubin 0.3 (0.2-1.3) mg/dL AST 22 (14-36) U/L ALT 20 (6-35) U/L Alkaline Phosphatase 120 (38-126) U/L Total Protein 7.0 (6.3-8.2) g/dL Albumin 4.1 (3.5-5.1) g/dL Urine Color Yellow (Yellow) Urine Appearance Cloudy H (Clear) Urine pH 6.5 (5.0-9.0) Ur Specific [place] 1.024 (1.001-1.035) Urine Protein Negative (Negative) mg/dL Urine Glucose (UA) Negative (Negative) mg/dL Urine Ketones Trace H (Negative) mg/dL Ur Blood (Man) Negative (Negative) Urine Nitrate Negative (Negative) Urine Bilirubin Negative (Negative) Urine Urobilinogen 1.0 (<2.0) mg/dL Add Ur Microanalysis Reviewed Leukocyte Esterase Rfl 1+ H (Negative) REJI/UL Urine RBC 0-2 (0-2) /hpf Urine WBC 21-50 H (0-3) /hpf Ur Squamous Epith Cells Moderate (Few) /hpf Urine Bacteria 4+ H /hpf Urine Casts 3-5 Discharge Plan Discharge Clinical Impression: Acute UTI Patient Disposition: NH Assisted/Asst Living Condition: Stable Instructions: Antibiotic Form Additional Instructions: Exam and workup today show evidence of mild UTI. Please take antibiotics as prescribed. Follow-up with PCP this week. If you have any new or worsening symptoms please return to the ER for further evaluation. Patient Language: Puerto Rican Prescriptions: New ciprofloxacin HCl [Cipro] 500 mg tablet 500 mg PO Q12H Qty: 14 0RF No Action clotrimazole 1 % cream 1 applic topical BID 14 Days Qty: 45 0RF Follow-up/Referrals: UNKNOWN,DOCTOR [Primary Care Provider] - Stand Alone Forms: [facility] Discharge Time of Disposition: 15:38
[2024-07-08 16:50] VITALS: BP 108/85; PULSE 65; RESP 16; O2SAT 96
== END 2024-07-08 19:14 ==
PROVIDERS: Emergency Medicine; Emergency Provider Physician Assistant
DX: N39.0 Urinary tract infection, site not specified (principal); F03.90 Unspecified dementia, unspecified severity, without behavioral disturbance, psychotic disturbance, mood disturbance, and anxiety; I10 Essential (primary) hypertension; R00.1 Bradycardia, unspecified; R94.31 Abnormal electrocardiogram [ECG] [EKG]
CPT/HCPCS: 36415; 71046; 80053; 81001; 85025; 93005; 99283